=== PATIENT | male | born 1965 | race Caucasian/White ===

== ENCOUNTER 2016-04-15 23:50 | Emergency (ER) | payer OTHER ==
[~2016-04-15] VITALS: Ht 180.3 cm; Wt 87.0 kg
[~2016-04-15 23:50] MED LIST: HYDR-3533 PO; ZOFR4TAB3 SL
[2016-04-16 00:26] VITALS: BP 117/76; PULSE 80; RESP 16; TEMP 95.4; O2SAT 99
--- NOTE | 2016-04-16 00:53 | PD ---
HPI Chief Complaint: Psychiatric Symptoms Time Seen by Provider: 00:40 Travel History International Travel<30 days: No Contact w/Intl Traveler<30days: No Traveled to known affect area: No History of Present Illness HPI 50-year-old male presents under [place] act [place] [employer]. The patient reports over the past few weeks she has been feeling depressed and suicidal. Tonight he went to a bar with a friend and when he came home his friend argument with his girlfriend. Someone called the police and the patient was Uribe acted. The patient reports that his girlfriend who is addicted to IV drugs was recently found to be . In addition the patient lost his job 1.5 hours ago and feels that he cannot provide for her. For these reasons she has been feeling depressed. He has thoughts of taking all of the girlfriend's IV drugs and injecting them all to kill himself. He denies any attempts at suicide. Endorses alcohol use tonight. He has no other complaints at this time. [facility] Past Medical History High Cholesterol: Yes Diminished Hearing: No Gastrointestinal Disorders: Yes GERD: Yes Hiatal Hernia: Yes Hypertension: Yes Kidney Stones: Yes Immunizations Current: No Ulcer: Yes (GOFF'S ESOPHAGUS PER PT) Past Surgical History Cholecystectomy: Yes Family History Family Hypercholesterolemia: Yes (FATHER) Social History Alcohol Use: Yes (6 PACK OF BEER DAILY) Tobacco Use: No (QUIT "PROBABLY WHEN I WAS 25") Substance Use: Yes (OCC MARIJUANA) Allergies-Medications (Allergen,Severity, Reaction): Coded Allergies: No Known Allergies (Verified , 04/16/16) Reported Meds & Prescriptions Reported Meds & Active Scripts Active Review of Systems Except as stated in HPI: all other systems reviewed are Neg Physical Exam Narrative GENERAL: Well-developed well-nourished male in no acute distress SKIN: Warm and dry. HEAD: Atraumatic. Normocephalic. EYES: Pupils equal and round. No scleral icterus. No injection or drainage. ENT: No nasal bleeding or discharge. Mucous membranes pink and moist. NECK: Trachea midline. No JVD. CARDIOVASCULAR: Regular rate and rhythm. No murmur appreciated. RESPIRATORY: No accessory muscle use. Clear to auscultation. Breath sounds equal bilaterally. GASTROINTESTINAL: Abdomen soft, non-tender, nondistended. Hepatic and splenic margins not palpable. MUSCULOSKELETAL: No obvious deformities. NEUROLOGICAL: Awake and alert. No obvious cranial nerve deficits. Motor grossly within normal limits. Mildly slurred speech. PSYCHIATRIC: Depressed mood; insight and judgment normal. Data Data Last Documented VS Vital Signs Date Time Temp Pulse Resp B/P Pulse Ox O2 Delivery O2 Flow Rate FiO2 04/16/16 00:26 95.4 80 16 117/76 99 Orders Complete Blood Count With Diff (04/16/16 00:26) Comprehensive Metabolic Panel (04/16/16 00:26) Drug Screen, Random Urine (04/16/16 00:26) Alcohol (Ethanol) (04/16/16 00:26) Salicylates (Aspirin) (04/16/16 00:26) Tylenol (Acetaminophen) (04/16/16 00:26) Psych Screen (04/16/16 00:26) Diet Regular Basic (04/16/16 Breakfast) Labs Laboratory Tests Test 04/16/16 04/16/16 00:35 02:20 White Blood Count 9.6 TH/MM3 Red Blood Count 4.33 MIL/MM3 Hemoglobin 13.6 GM/DL Hematocrit 38.9 % Mean Corpuscular Volume 89.9 FL Mean Corpuscular Hemoglobin 31.4 PG Mean Corpuscular Hemoglobin 34.9 % Concent Red Cell Distribution Width 13.1 % Platelet Count 324 TH/MM3 Mean Platelet Volume 7.5 FL Neutrophils (%) (Auto) 72.7 % Lymphocytes (%) (Auto) 20.9 % Monocytes (%) (Auto) 5.2 % Eosinophils (%) (Auto) 0.6 % Basophils (%) (Auto) 0.6 % Neutrophils # (Auto) 7.0 TH/MM3 Lymphocytes # (Auto) 2.0 TH/MM3 Monocytes # (Auto) 0.5 TH/MM3 Eosinophils # (Auto) 0.1 TH/MM3 Basophils # (Auto) 0.1 TH/MM3 CBC Comment DIFF FINAL Differential Comment Sodium Level 131 MEQ/L Potassium Level 3.7 MEQ/L Chloride Level 95 MEQ/L Carbon Dioxide Level 24.8 MEQ/L Anion Gap 11 MEQ/L Blood Urea Nitrogen 17 MG/DL Creatinine 0.82 MG/DL Estimat Glomerular Filtration 99 ML/MIN Rate Random Glucose 91 MG/DL Calcium Level 8.2 MG/DL Total Bilirubin 0.3 MG/DL Aspartate Amino Transf 13 U/L (AST/SGOT) Alanine Aminotransferase 18 U/L (ALT/SGPT) Alkaline Phosphatase 69 U/L Total Protein 6.6 GM/DL Albumin 3.8 GM/DL Salicylates Level 3.1 MG/DL Acetaminophen Level LESS THAN 2.0 MCG/ML Ethyl Alcohol Level 259 MG/DL Urine Opiates Screen NEG Urine Barbiturates Screen NEG Urine Amphetamines Screen NEG Urine Benzodiazepines Screen NEG Urine Cocaine Screen POS Urine Cannabinoids Screen NEG MDM Medical Decision Making Medical Screen Exam Complete: Yes Emergency Medical Condition: Yes Medical Record Reviewed: Yes Differential Diagnosis Major depressive disorder, adjustment reaction, acute psychosis, substance induced mood disorder Narrative Course 50-year-old male presents under Uribe act for psychiatric evaluation of depression and suicidal ideation. Mental health screening discussed with the patient. Psychiatric screen ordered. The patient's lab work is notable for positive cocaine screen, alcohol level of 259, sodium 131. He is medically cleared for psychiatric disposition. Diagnosis Primary Impression: Depression Qualified Code: F32.9 - Depression, unspecified depression type Additional Impression: Polysubstance abuse Diego Hung Apr 16, 2016 00:53
[2016-04-16 01:55] LABS: BASOPHIL # 0.1 TH/MM3 (0-0.2); BASOPHIL % 0.6 % (0.0-2.0); EOSINOPHIL # 0.1 TH/MM3 (0-0.4); EOSINOPHIL % 0.6 % (0.0-4.0); HEMATOCRIT 38.9 % (39.0-51.0); HEMO FLAGS DIFF FINAL; LYMPH % 20.9 % (9.0-44.0); MEAN CELL VOLUME 89.9 FL (80.0-100.0); MEAN CORPUSCULAR HEMOGLOBIN 31.4 PG (27.0-34.0); MEAN CORPUSCULAR HGB CONC 34.9 % (32.0-36.0); MONO % 5.2 % (0.0-8.0); NEUT % 72.7 % (16.0-70.0); PLATELET COUNT 324 TH/MM3 (150-450); RED BLOOD COUNT 4.33 MIL/MM3 (4.50-5.90); RED CELL DISTRIBUTION WIDTH 13.1 % (11.6-17.2); WHITE BLOOD COUNT 9.6 TH/MM3 (4.0-11.0)
[2016-04-16 02:12] LABS: ALT (GPT) 18 U/L (12-78); ANION GAP 11 MEQ/L (5-15); AST (GOT) 13 U/L (15-37); BICARBONATE 24.8 MEQ/L (21.0-32.0); BLOOD UREA NITROGEN 17 MG/DL (7-18); CHLORIDE 95 MEQ/L (98-107); GLOMERULAR FILTRATION RATE 99 ML/MIN (>89); POTASSIUM 3.7 MEQ/L (3.5-5.1); SODIUM (NA) 131 MEQ/L (136-145)
[2016-04-16 02:14] LABS: ACETAMINOPHEN LESS THAN 2.0 MCG/ML (10.0-30.0); ALKALINE PHOSPHATASE 69 U/L (45-117); TOTAL BILIRUBIN ADULT 0.3 MG/DL (0.2-1.0)
[2016-04-16 03:03] LABS: AMPHETAMINE, URINE NEG (NEG); BARBITURATES, URINE NEG (NEG); COCAINE, URINE POS (NEG)
[2016-04-16 06:15] VITALS: BP 114/60; PULSE 76; RESP 18
--- NOTE | 2016-04-16 08:31 | MB ---
cc: MARCOS HANDY MD DATE OF CONSULTATION: 04/16/2016 PHYSICIAN REQUESTING CONSULTATION Emergency Department. REASON FOR CONSULTATION Uribe Act. HISTORY OF PRESENT ILLNESS Mr. Sheldon is a 50-year-old male with no reported past psychiatric history who presents under a Uribe Act from [place] [employer] alleging that the patient said that his best option was to kill himself and end it all. Reviewing the electronic medical record, I see no prior psychiatric contact within our system. Of note, the patient's urine toxicology was positive for cocaine and his alcohol level was 259 on presentation here. The patient seen and examined. Chart reviewed. Case discussed with nurse in the J pod. There has been no evidence of any suicidal or homicidal behavior while under observation in the J pod. On my examination this morning the patient is clinically sober. He adamantly denies any suicidal ideation and says that he wants to live for his children. 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 His girlfriend is also and dealing with substance use issues. He does describe some mild anxiety with associated muscle tension and sleep disturbance but otherwise denies any psychiatric symptomatology. In particular he denies any issues with low mood or elevated mood, nor can I elicit any depressive or hypomanic/ manic symptoms at this time. He denies any audiovisual hallucinations and I can elicit no delusional beliefs including but not limited to, paranoia, ideas of reference, thought insertion or withdrawal or grandiosity. The remainder of psychiatric ROS is negative. The patient is future oriented. He requests discharge from the psychiatric emergency room this morning. PAST PSYCHIATRIC HISTORY The patient denies any history of psychiatric diagnosis. He denies any history of inpatient or outpatient psychiatric treatment. He denies any history of suicide attempts. FAMILY HISTORY The patient denies family history of serious mental illness, substance use disorder or suicide/suicide attempts. CHEMICAL DEPENDENCY HISTORY Patient insists that he is not a daily drinker or cocaine user. He says that his last substance use prior to last evening was about 6 months ago. He says he was drinking beer last night. He only rarely uses cocaine. He denies any other substance use. 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 His girlfriend of 8 months is and suffering with substance use issues. He is and has two other children. He denies any or legal history. He is a [employer]. He denies any access to guns or firearms. PAST MEDICAL HISTORY The patient denies any significant medical history but also says that he does not typically go to the doctor. REVIEW OF SYSTEMS No reported symptoms of withdrawal. No reported headache, vision or hearing changes, chest pain, shortness of breath, bowel or bladder issues. No other somatic complaints. PHYSICAL EXAMINATION Vital signs: Temperature is 95.4, pulse of 76, respirations 18, blood pressure 114/60, pulse oximetry 99% on room air. Physical examination was completed in the emergency room by the ER staff and the patient was medically cleared. On my examination today, the patient is clinically sober and displays no signs of withdrawal. No other abnormal motor movements noted. LABORATORIES REVIEWED CBC is unremarkable. CMP is significant for mild hyponatremia at 131. Toxicology reveals cocaine in the urine and alcohol level of 259 as I said. MENTAL STATUS EXAMINATION The patient is in hospital gown. He is well-groomed. He is maintaining basic hygiene. He is awake, alert and oriented x3. No evidence of delirium. No abnormal motor movements noted. Speech is within normal limits for rate, tone and volume. Language and fund of knowledge seem average for age. Mood is fair and affect is full and reactive. Thought process linear. No loosening of associations. No evident delusions. Denies audiovisual hallucinations. Denies suicidal ideation, intent or plan. Denies homicidal ideation, intent or plan. Insight and judgment are fair. ASSESSMENT/PLAN 1. Adjustment disorder with anxiety, F43.22. 2. Alcohol abuse with intoxication, F10.120. This is a 50-year-old male with psychiatric history as detailed above who presents under Uribe Act after making suicidal statements while intoxicated. This morning the patient is clinically sober and denies any suicidal or homicidal ideation. He wants to live for his children. He is future oriented and already thinking about ways in which he might get a new job. Besides some anxious symptoms, which seem largely reactive to his psychosocial stressors, I can detect no signs of any unstable mood, anxiety or psychotic disorder in this patient at this time. He is meeting his basic needs. The patient does not meet Uribe Act criteria after weighing the relevant factors and I have lifted the Uribe Act. He is requesting discharge from the emergency room this morning. He is willing to accept a psychiatric referral on an outpatient basis and we will provide this as well as chemical dependency resources. I have counseled the patient regarding warning signs for need to return to the psychiatric emergency room as part of a general safety plan. The patient is otherwise psychiatrically clear for discharge from the ED. Thank you very much for this consultation. Marcos Handy DC/LARRY /7:52 AM /8:14 AM ZEV
[2016-04-16 14:41] VITALS: BP 114/60; PULSE 76; RESP 18
== END 2016-04-16 14:43 | disposition home or self-care (01) ==
LOC: NEPA 23:50 → NEPJ 04-16 14:43
DX: F32.9 Major depressive disorder, single episode, unspecified (principal); F19.10 Other psychoactive substance abuse, uncomplicated; F43.22 Adjustment disorder with anxiety; E78.00 Pure hypercholesterolemia, unspecified; I10 Essential (primary) hypertension; F10.10 Alcohol abuse, uncomplicated; F12.90 Cannabis use, unspecified, uncomplicated
CPT/HCPCS: 80053; 80307; 80320; 80329; 85025; 99285; G0480

== ENCOUNTER 2016-08-17 18:10 | Emergency (ER) | payer SELFPAY ==
[~2016-08-17] VITALS: Ht 180.3 cm; Wt 75.0 kg
[2016-08-17 18:14] VITALS: BP 128/85; PULSE 88; RESP 20; TEMP 98.7; O2SAT 96
[2016-08-17] MEDS ORDERED: POLY10O LEFT EYE (18:25)
--- NOTE | 2016-08-17 18:26 | PD ---
HPI Chief Complaint: Eye Problems/Injury Time Seen by Provider: 18:24 Travel History International Travel<30 days: No Contact w/Intl Traveler<30days: No Traveled to known affect area: No History of Present Illness HPI 50-year-old male presents emergency Department with complaint of left eye irritation, redness, purulent drainage 3 days. His girlfriend and another person in the house had pinkeye recently. He also reports left-sided nasal congestion and a burning sensation in his nostrils. Reports left-sided sinus pressure. Denies fever, vomiting. Denies ear pain, sore throat, cough. Denies eye pain. Denies foreign body, trauma to the eye. Denies change in vision. Has tried an [id number] eye spray with no relief of symptoms. Has no other medical complaints. No known allergies. No other modifying factors or associated signs and symptoms. PFSH Past Medical History High Cholesterol: Yes Diminished Hearing: No Gastrointestinal Disorders: Yes GERD: Yes Hiatal Hernia: Yes Hypertension: Yes Kidney Stones: Yes Immunizations Current: No Ulcer: Yes (GOFF'S ESOPHAGUS PER PT) Tetanus Vaccination: < 5 Years Influenza Vaccination: No ?: Not Past Surgical History Cholecystectomy: Yes Family History Family Hypercholesterolemia: Yes (FATHER) Social History Alcohol Use: Yes (denies) Tobacco Use: Yes (2 ppd) Substance Use: No (denies) Allergies-Medications (Allergen,Severity, Reaction): Coded Allergies: No Known Allergies (Verified , 04/16/16) Reported Meds & Prescriptions Reported Meds & Active Scripts Active Amoxicillin 500 Mg Cap 500 Mg PO BID 10 Days Polytrim Opth Drops (Polymyxin/Trimethoprim Sulfate) 10,000-0.1 Unit/Ml-% Soln 2 Drop LEFT EYE Q6HR 7 Days Review of Systems Except as stated in HPI: all other systems reviewed are Neg Physical Exam Narrative GENERAL: Well-nourished, well-developed male patient, in no acute distress; afebrile, nontoxic-appearing SKIN: Warm and dry. No rash. HEAD: Atraumatic. Normocephalic. Frontal and maxillary tenderness sinus on palpation. EYES: Pupils equal and round at 3 mm with brisk reaction. PERRLA. EOMI. left lid eversion with no foreign body noted. Left eye with scleral erythema and mild lid edema. No orbital tenderness, erythema or cellulitis. Left eye without photophobia. No consensual photophobia. No scleral icterus. Purulent drainage noted from the left eye; crusting noted on upper and lower eyelashes. ENT: Mucosa pink and moist. No erythema or exudates. No uvular edema. No uvular , palatal, or tonsillar deviation. Airway patent. Right turbinates appear normal without nasal blood, purulent drainage or septal hematoma. Left nasal turbinates are edematous and erythematous and purulent drainage from the nostril noted. EARS: Bilateral pinnae and external canals appear within normal limits. Bilateral tympanic membranes without erythema, dullness or perforation. NECK: Trachea midline. No lymphadenopathy. CARDIOVASCULAR: Regular rate. RESPIRATORY: No accessory muscle use. GASTROINTESTINAL: Round. MUSCULOSKELETAL: No obvious deformities. No clubbing. No cyanosis. No edema. NEUROLOGICAL: Awake and alert. Oriented 3. No obvious cranial nerve deficits. Motor grossly within normal limits. Normal speech. Moves all extremities. 5/5 strength to all extremities. PSYCHIATRIC: Appropriate mood and affect; insight and judgment normal. Data Data Last Documented VS Vital Signs Date Time Temp Pulse Resp B/P Pulse Ox O2 Delivery O2 Flow Rate FiO2 08/17/16 18:14 98.7 88 20 128/85 96 Room Air Orders Amoxicillin (Trimox) (08/17/16 18:45) MDM Medical Decision Making Medical Screen Exam Complete: Yes Emergency Medical Condition: Yes Medical Record Reviewed: Yes Differential Diagnosis Sinusitis, conjunctivitis, viral illness Narrative Course 50-year-old male physical exam and history of present illness consistent with left eye conjunctivitis and sinusitis. Patient is afebrile and nontoxic- appearing. Denies fever, vomiting. Polytrim eye drops and amoxicillin prescribed for home. First dose of amoxicillin administered in the ER. Patient verbalizes understanding and agreement with treatment plan. Patient is medically cleared and stable for discharge. Discussed reasons to return to the emergency department. Instructed patient to follow up with primary care provider. Patient agrees with treatment plan. The patients vital signs are stable and the patient is stable for outpatient follow-up and treatment. Patient discharged home, stable and in no acute distress. Diagnosis Primary Impression: Conjunctivitis, left eye Qualified Code: H10.9 - Conjunctivitis of left eye, unspecified conjunctivitis type Additional Impression: Sinusitis Qualified Code: J32.9 - Sinusitis, unspecified chronicity, unspecified location Referrals: Primary Care Physician Patient Instructions: Conjunctivitis (ED), General Instructions, Sinusitis (ED) Departure Forms: Tests/Procedures, Work Release Enter return to work date: August 19, 2016 Additional Instructions: Conjunctivitis is contagious Use antibiotic eye drops as prescribed Apply warm or cool compresses to both eyes for a few minutes several times daily to minimize irritation Avoid triggers, such as allergens, that may irritate your eyes Wash your hands frequently Do not share washcloths, towels, pillows, or any other material that has touched your eyes with any other household members Follow-up with your primary care provider Follow-up with ophthalmology as needed Return to the emergency department immediately with worsening of symptoms Antibiotics as prescribed and complete full course Ibuprofen or Tylenol as instructed and as needed for fever/pain [id number] cough and cold medications as directed and as needed for symptom management Get plenty of sleep/rest Drink plenty of fluids to prevent dehydration; popsicles and Gatorade Use an air humidifier/turn off ceiling fans Follow-up with primary care provider Return immediately to the emergency department with worsening of symptoms Med/Other Pt SpecificInfo: Prescription(s) given Scripts Amoxicillin 500 Mg Oml812 Mg PO BID 10 Days Ref 0 Prov:Mariana Campos 08/17/16 Polymyxin B-Trimethoprim Opth Drops (Polytrim Opth Drops)10,000-0.1 Unit/Ml-% Soln2 Drop LEFT EYE Q6HR 7 Days Ref 0 Prov:Mariana Campos 08/17/16 Disposition: 01 DISCHARGE HOME Condition: Stable Mariana Campos August 17, 2016 18:26
[2016-08-17] MEDS ORDERED: AMOX500C PO (18:31)
[2016-08-17] MEDS ORDERED: AMOXICILLIN (TRIHYDRATE) 500 MG CAP PO ONE (18:45)
== END 2016-08-17 18:44 | disposition home or self-care (01) ==
LOC: NEPK 18:10
DX: H10.9 Unspecified conjunctivitis (principal); J32.9 Chronic sinusitis, unspecified; I10 Essential (primary) hypertension; F17.210 Nicotine dependence, cigarettes, uncomplicated
CPT/HCPCS: 99284